=== PATIENT | female | born 1985 | race African-American/Black ===

== ENCOUNTER 2024-02-22 11:11 | Emergency (ER) | payer MEDICAID, OTHER ==
[~2024-02-22] VITALS: Ht 160 cm; Wt 67.6 kg
[~2024-02-22 11:11] MED LIST: FERR-212 PO; IBUP-974 PO; PRETAB GT
[2024-02-22 11:16] VITALS: BP 139/88; PULSE 96; RESP 18; TEMP 98.3; O2SAT 99
[2024-02-22 11:35] VITALS: O2SAT 99
[2024-02-22 13:35] VITALS: O2SAT 99
[2024-02-22 14:39] LABS: BASOPHILS # (AUTO) 0.1 K/uL (0.00-0.22); BASOPHILS % (AUTO) 0.7 % (0.0-2.0); EOSINOPHILS # (AUTO) 0.3 K/uL (0-0.4); HEMATOCRIT 35.8 % (36-48); HEMOGLOBIN 11.9 g/dL (12.0-16.0); LYMPHOCYTES % (AUTO) 15.3 % (20.5-51.1); MEAN CORPUSCULAR HEMOGLOBIN 29 pg (27-31); MEAN CORPUSCULAR HGB CONC 33 g/dL (33-37); MEAN CORPUSCULAR VOLUME 86.3 fL (80-94); MONOCYTES # (AUTO) 0.9 K/uL (0.8-1.0); MONOCYTES % (AUTO) 7.3 % (1.7-9.3); NEUTROPHILS # (AUTO) 9.7 K/uL (1.8-7.7); NEUTROPHILS % (AUTO) 74.7 % (42.2-75.2); PLATELET COUNT (AUTO) 389 K/uL (140-450); RED BLOOD CELL COUNT(AUTO) 4.15 MIL/uL (4.20-5.40); RED CELL DISTRIBUTION WIDTH 13.8 % (11.6-13.7); WHITE BLOOD COUNT (AUTO) 12.9 K/uL (4.8-10.8)
[2024-02-22 15:35] VITALS: O2SAT 99
[2024-02-22 16:02] VITALS: BP 134/60; PULSE 88; RESP 18; TEMP 97.3; O2SAT 99
== END 2024-02-22 15:55 | disposition home or self-care (01) ==
LOC: MED 11:11
DX: O20.0 Threatened abortion (principal); Z3A.01 Less than 8 weeks gestation of pregnancy; Z79.899 Other long term (current) drug therapy
CPT/HCPCS: 36415; 76817; 81002; 81025; 84702; 84703; 85025; 99285; Q0092